=== PATIENT | male | born 1995 | race African-American/Black ===

== ENCOUNTER 2018-12-24 16:55 | Emergency (ER) | payer BC ==
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
[2018-12-24] MEDS ORDERED: CEFTRIAXONE INJ 1000 MG VIAL IM ONE ×2 (20:46→20:49)
[2018-12-24] MEDS ORDERED: LIDOCAINE 1% INJ-PF (10 MG/ML) 30 ML SDV INJ ONE (20:46)
[2018-12-24] MEDS ORDERED: DOXYCYCLINE HYCLATE 100 MG TABLET PO ONE (20:47)
[2018-12-24 21:54] VITALS: BP 133/79
== END 2018-12-24 21:56 | disposition home or self-care (01) ==
LOC: ER 16:55
DX: T75.1XXA Unspecified effects of drowning and nonfatal submersion, initial encounter (principal); W69.XXXA Accidental drowning and submersion while in natural water, initial encounter; Y93.11 Activity, swimming; Y92.832 Beach as the place of occurrence of the external cause; J45.909 Unspecified asthma, uncomplicated; Z53.20 Procedure and treatment not carried out because of patient's decision for unspecified reasons
CPT/HCPCS: 99285; 96372; 71046; J3490; J0696